=== PATIENT | male | born 1960 | race Caucasian/White ===

== ENCOUNTER 2024-08-05 10:17 | Day surgery (SDC) | payer MEDICARE, MEDICAID ==
[2024-08-05] MEDS ORDERED: LIDOCAINE 3.5 % 1ML OPHTH TOPICAL GEL OU ONE (12:15)
[2024-08-05] MEDS ORDERED: fentaNYL 100 MCG/2 ML INJECTION As Ordered ONE (13:00)
[2024-08-05] MEDS ORDERED: MIDAZOLAM INJ 2MG/2ML VIAL As Ordered ONE (13:00)
[2024-08-05] MEDS: POVIDONE-IODINE 5% OPHTH PREP SOL 30ML As Ordered ONE (13:56)
[2024-08-05] MEDS: TOBRADEX OPHTH OINT 3.5 GM As Ordered ONE (13:56)
[2024-08-05] MEDS: LIDOCAINE 1% SDV 5ML VIAL As Ordered ONE (13:56)
[2024-08-05] MEDS ORDERED: ACETAMINOPHEN 1000MG/100ML IV BAG As Ordered ONE (13:57)
[2024-08-05] MEDS ORDERED: KETOROLAC 60MG 2ML VIAL As Ordered ONE (13:57)
[2024-08-05] MEDS: mitoMYcin 0.2 MG/VIAL KIT FOR OPHTHALMIC USE As Ordered ONE (13:57)
[2024-08-05 15:01] VITALS: TEMP 96.8
[2024-08-05 15:22] VITALS: BP 146/88; O2SAT 96
== END 2024-08-05 15:26 | disposition home or self-care (01) ==
LOC: M SDC 10:17
PROVIDERS: ATTEND Ophthalmology
DX: H40.1123 Primary open-angle glaucoma, left eye, severe stage (principal); I10 Essential (primary) hypertension; J44.9 Chronic obstructive pulmonary disease, unspecified; Z79.899 Other long term (current) drug therapy; Z87.891 Personal history of nicotine dependence
CPT/HCPCS: 66183; C1783; J0131; J2250; J3010; J7315